=== PATIENT | female | born 1950 | race Caucasian/White ===

== ENCOUNTER 2016-09-08 16:59 | Inpatient (IN) | payer OTHER ==
[~2016-09-08] VITALS: Ht 170.2 cm; Wt 66.1 kg
[~2016-09-08 16:59] MED LIST: AMLO10TA2 PO; DOCU-94 PO; FERR325T PO; LIS10T PO; LOVA40TA72 PO; NOR5T PO; SERT-135 PO; TRAM; TRAZADONE PO; ZOLPI; [UNRECOGNIZED DRUG - OTHER]
[2016-09-08 18:02] LABS: Basophils # (auto) 0 uL; Basophils % (auto) 0.6 % (0.0-2.0); Eosinophils # (auto) 0 uL; Eosinophils % (auto) 0.6 % (0.0-7.0); Hematocrit 36.7 % (36.0-46.0); Lymphocytes # (auto) 0.9 uL; Lymphocytes % (auto) 17.1 % (10.0-50.0); Mean Corpuscular Hgb Conc. 32.8 g/dL (32.0-36.0); Mean Corpuscular Volume 88.6 fL (80.0-100.0); Mean Platelet Volume 9.2 fL (7.4-10.4); Monocytes # (auto) 0.3 uL; Monocytes % (auto) 6.7 % (0.0-12.0); Neutrophils # (auto) 3.8 uL; Platelet Count (auto) 226 10^3/uL (140-450); Red Cell Distribution Width 14.2 % (11.6-16.0)
[2016-09-08 18:20] LABS: Albumin 3.9 g/dL (3.4-5.0); Alkaline Phosphatase 56 U/L (45-117); Anion Gap 7 (5-15); Aspartate Aminotransferase 13 U/L (15-37); BUN/Creatinine Ratio 14.3; Bilirubin, Total 0.2 mg/dL (0.2-1.0); Blood Urea Nitrogen 17 mg/dL (7-18); Calcium 9.2 mg/dL (8.5-10.1); Carbon Dioxide 30 mmol/L (21-32); Chloride 100 mmol/L (98-107); GFR African American 58 mL/min; GFR Non-African American 48 mL/min; Glucose 116 mg/dL (74-106); Magnesium 2.1 mg/dL (1.6-2.6); Potassium 4.6 mmol/L (3.5-5.1); Sodium 137 mmol/L (136-145); Total Protein 6.8 g/dL (6.4-8.2)
[2016-09-08] MEDS ORDERED: ZOLP10TA PO (20:11)
[2016-09-08] MEDS ORDERED: CITA-73 PO (20:11)
[2016-09-08] MEDS ORDERED: TRAM50TA2 PO (20:11)
[2016-09-08] MEDS ORDERED: TRAZ100T2 PO (20:11)
[2016-09-08] MEDS ORDERED: TIZA4CAP5 PO (20:11)
[2016-09-08 20:25] LABS: Urine Bilirubin Negative (Negative); Urine Blood Negative /uL (Negative); Urine Color Yellow (Yellow); Urine Glucose Normal (Normal); Urine Ketone Negative (Negative); Urine Nitrite Negative (Negative); Urine RBC <1 /hpf (0 - 4); Urine Urobilinogen Normal (Negative)
[2016-09-08] MEDS ORDERED: ZOLPIDEM TARTRATE 5 MG TAB PO ONE (20:30)
[2016-09-08] MEDS ORDERED: ACETAMINOPHEN 325 MG TAB PO PRN (22:30)
[2016-09-08] MEDS ORDERED: ONDANSETRON HCL 4 MG/2 ML VIAL IV PRN (22:30)
[2016-09-09] VITALS (7 sets, daily range): BP systolic 113–156; BP diastolic 59–81
[2016-09-09] MEDS: HYDROcodone-ACET 5/325MG TAB PO PRN ×4 (00:31→13:46)
[2016-09-09 06:20] LABS: Basophils # (auto) 0 uL; Basophils % (auto) 0.3 % (0.0-2.0); Eosinophils # (auto) 0 uL; Eosinophils % (auto) 0.7 % (0.0-7.0); Hematocrit 37.3 % (36.0-46.0); Hemoglobin 12.3 g/dL (12.2-16.2); Lymphocytes % (auto) 14.4 % (10.0-50.0); Mean Corpuscular Hemoglobin 29.2 pg (28.0-32.0); Mean Corpuscular Volume 88.3 fL (80.0-100.0); Mean Platelet Volume 9.1 fL (7.4-10.4); Monocytes # (auto) 0.5 uL; Monocytes % (auto) 7.1 % (0.0-12.0); Neutrophils # (auto) 5.2 uL; Neutrophils % (auto) 77.5 % (37.0-80.0); Platelet Count (auto) 233 10^3/uL (140-450); Red Cell Distribution Width 13.7 % (11.6-16.0); White Blood Cell 6.8 10^3/uL (4.4-10.8)
[2016-09-09 06:44] LABS: Potassium 4.3 mmol/L (3.5-5.1)
[2016-09-09 06:52] LABS: Albumin 3.9 g/dL (3.4-5.0); Calcium 9.6 mg/dL (8.5-10.1)
[2016-09-09 07:06] LABS: Bilirubin, Total 0.2 mg/dL (0.2-1.0); Total Protein 6.6 g/dL (6.4-8.2)
[2016-09-09] MEDS: CITALOPRAM HYDROBR 20 MG TAB PO SCH (09:22)
[2016-09-09] MEDS: LISINOPRIL 10 MG TAB PO SCH (09:23)
[2016-09-09] MEDS: FAMOTIDINE 20 MG TAB PO SCH ×2 (09:24→22:24)
[2016-09-09] MEDS: amLODIPine BESYLATE 5 MG TAB PO SCH (09:24)
[2016-09-09] MEDS: ENOXAPARIN SOD 40 MG/0.4 ML SYRINGE SC SCH (09:25)
[2016-09-09] MEDS: ASPirin-EC 81 mg tab PO SCH (15:41)
[2016-09-09] MEDS: HYDROcodone-ACET 10/325MG TAB PO PRN ×2 (18:45→23:25)
[2016-09-09] MEDS ORDERED: PATIENTS OWN MEDICATION (lovastatin 40 MG) PO SCH ×2 (22:00)
[2016-09-09] MEDS ORDERED: PRAVASTATIN SODIUM 20 MG TAB PO SCH (22:00)
[2016-09-09] MEDS ORDERED: traZODone HCL 50 MG TAB PO SCH (22:00)
[2016-09-09] MEDS ORDERED: ZOLPIDEM TARTRATE 5 MG TAB PO PRN (22:30)
[2016-09-10] VITALS (7 sets, daily range): BP systolic 92–139; BP diastolic 55–85
[2016-09-10] MEDS: HYDROcodone-ACET 10/325MG TAB PO PRN ×3 (05:37→14:44)
[2016-09-10] MEDS: ALPRAZolam 0.25 MG TAB PO PRN ×2 (09:13→18:29)
[2016-09-10] MEDS: ENOXAPARIN SOD 40 MG/0.4 ML SYRINGE SC SCH (10:00)
[2016-09-10] MEDS: ASPirin-EC 81 mg tab PO SCH (10:20)
[2016-09-10] MEDS: CITALOPRAM HYDROBR 20 MG TAB PO SCH (10:20)
[2016-09-10] MEDS: FAMOTIDINE 20 MG TAB PO SCH (10:21)
[2016-09-10] MEDS: LISINOPRIL 10 MG TAB PO SCH (10:21)
[2016-09-10] MEDS: amLODIPine BESYLATE 5 MG TAB PO SCH (10:22)
== END 2016-09-10 19:44 | disposition home or self-care (01) | DRG 880 ==
LOC: ER 17:04 → WEST WING 17:06
PROVIDERS: ADMIT Nurse Practitioner; ATTEND Hospitalist
DX: F41.0 Panic disorder [episodic paroxysmal anxiety] (principal); J98.11 Atelectasis; E78.5 Hyperlipidemia, unspecified; I10 Essential (primary) hypertension; G89.29 Other chronic pain; F32.9 Major depressive disorder, single episode, unspecified; D64.9 Anemia, unspecified; I11.9 Hypertensive heart disease without heart failure; Z80.1 Family history of malignant neoplasm of trachea, bronchus and lung; Z82.49 Family history of ischemic heart disease and other diseases of the circulatory system; Z98.42 Cataract extraction status, left eye; Z90.710 Acquired absence of both cervix and uterus; Z84.1 Family history of disorders of kidney and ureter
CPT/HCPCS: 36415; 70450; 70551; 71010; 80053; 81001; 83735; 84484; 85025; 93005; 93886; 94761